=== PATIENT | male | born 1935 | race Asian ===

== ENCOUNTER → 2022-10-01 | Outpatient (CLI) | payer MEDICARE, OTHER ==
[~2022-10-01] VITALS: Ht 180.3 cm; Wt 92.5 kg
[~2022-10-01] MED LIST: ATOR40TA71 PO; AZIT-103 PO; CALC1TAB15 PO; CHOL10002 PO; CYAN1TAB44 PO; DABI150C2 PO; ESOM20CA31 PO; FISH1CAP49 PO; FLUT44HFA IH; FOLI1TAB15 PO; GUAI600T31 PO; MECL-231 PO; METF-444 PO; METO25TA6 PO; NIAC500T76 PO; NOCURR; PYRI-14 PO; TELM20 PO; TIOT185 IH
[2022-10-01 12:33] VITALS: BP 99/48
== END | disposition home or self-care (01) ==
LOC: SRCNTR 12:04
PROVIDERS: ATTEND Internal Medicine
DX: I11.0 Hypertensive heart disease with heart failure (principal); I50.9 Heart failure, unspecified; E78.5 Hyperlipidemia, unspecified; I48.91 Unspecified atrial fibrillation; J81.1 Chronic pulmonary edema; J44.9 Chronic obstructive pulmonary disease, unspecified; I25.10 Atherosclerotic heart disease of native coronary artery without angina pectoris; Z95.1 Presence of aortocoronary bypass graft
CPT/HCPCS: G0463; Z7500

== ENCOUNTER → 2022-12-02 | Outpatient (CLI) | payer MEDICARE, OTHER ==
[~2022-12-02] VITALS: Ht 180.3 cm; Wt 88.0 kg
[~2022-12-02] MED LIST changes: -CHOL10002 PO; -FLUT44HFA IH; +RANO500T27 PO; +[UNRECOGNIZED DRUG - CODE] IH
[2022-12-02 09:52] VITALS: BP 96/59; PULSE 70; RESP 15; TEMP 98; O2SAT 98
== END | disposition home or self-care (01) ==
LOC: SRCNTR 09:36
PROVIDERS: ATTEND Internal Medicine
DX: Z09 Encounter for follow-up examination after completed treatment for conditions other than malignant neoplasm (principal); I11.0 Hypertensive heart disease with heart failure; I50.9 Heart failure, unspecified; I25.10 Atherosclerotic heart disease of native coronary artery without angina pectoris; E78.5 Hyperlipidemia, unspecified; Z95.1 Presence of aortocoronary bypass graft
CPT/HCPCS: G0463; Z7500